=== PATIENT | male | born 1950 | race Caucasian/White ===

== ENCOUNTER 2021-11-29 12:30 | Emergency (ER) | payer OTHER ==
[~2021-11-29] VITALS: Ht 167.6 cm; Wt 124.7 kg
[~2021-11-29 12:30] MED LIST: ADULT LOW DOSE81 MG PO; ALLOPURINOL100 MG PO; AMLODIPINE BESYL5 MG PO; BUSPIRONE HCL5 MG; CITALOPRAM HBR40 MG PO; CLONIDINE HCL0.1 MG PO; COREG25 MG PO; DITROPAN XL5 MG PO; FISH OIL 1,2001 EACH PO; FUROSEMIDE40 MG PO; HYDROCHLOROTHIA25 MG PO; LANTUS SOL100 UNIT/1 SUB-Q; LANTUS100 UNITS/ SUB-Q; LEVOTHYROXINE75 MCG PO; LIPITOR80 MG PO; METFORMIN HCL1000 M1 PO; OMEPRAZOLE20 M1 PO; SERTRALINE HCL50 MG PO; TOPROL XL200 MG PO; TRAZODONE HCL50 MG PO; VICTOZA 2-0.6 MG/0.1 SUB-Q; ZYLOPRIM100 MG PO
[2021-11-29] MEDS ORDERED: PREDNISONE20 MG PO (18:39)
== END 2021-11-29 19:02 | disposition home or self-care (01) ==
LOC: ED 12:30
DX: M47.26 Other spondylosis with radiculopathy, lumbar region (principal); M48.061 Spinal stenosis, lumbar region without neurogenic claudication; I10 Essential (primary) hypertension; E11.9 Type 2 diabetes mellitus without complications; Z88.8 Allergy status to other drugs, medicaments and biological substances; Z79.899 Other long term (current) drug therapy; Z79.4 Long term (current) use of insulin; Z79.84 Long term (current) use of oral hypoglycemic drugs
CPT/HCPCS: 36415; 72131; 74176; 80053; 85025; 99285-25; J7030